=== PATIENT | female | born 1955 | race Two or more races ===

== ENCOUNTER 2016-03-30 08:05 | Emergency (ER) | payer OTHER ==
[2016-03-30 08:11] VITALS: BP 152/98; PULSE 92; TEMP 97.8; BMI 25.4
[2016-03-30] MEDS ORDERED: KETOROLAC TROMETHAMINE 60 MG/2 ML VIAL IM ONE (08:57)
--- NOTE | 2016-03-30 08:58 | PDOC ---
History of Present Illness - General Chief Complaint: Injury Stated Complaint: FALL/ LT SHOULDER PAIN Time Seen by Provider: 03/30/16 08:33 History Source: Patient Exam Limitations: No Limitations - History of Present Illness Initial Comments: 03/30/16 09:06 MY Chief Complaint: Fell left shoulder and upper arm pain History of present illness: Patient is a 60-year-old female with a history of hypertension and colon cancer who finished radiation therapy in the [facility] 33 sessions 01/14/2016. Patient reports that today she was walking in the hallway of her building and slipped and fell on the floor hitting her left shoulder and upper arm. Patient denies any head injury. Patient denies any neck pain. Patient denies any radiation of pain down left arm. Patient is unable to lift her left arm fully due to pain. Patient reports the pain currently is a 9 out of 10 aching and throbbing in nature. Patient has not taken anything for pain as yet. Occurred: reports: just prior to arrival Severity: reports: severe (left shoulder ) Past History - Past Medical History Allergies/Adverse Reactions: Allergies Allergy/AdvReac Type Severity Reaction Status Date / Time No Known Allergies Allergy Verified 03/30/16 08:54 Home Medications: Ambulatory Orders Oxycodone HCl/Acetaminophen [Percocet 5-325 mg Tablet] 1 tab PO Q6H PRN #12 tablet MDD 4 03/30/16 Cancer: Yes (COLON) GI Disorders: Yes (GASTRITIS) HTN: Yes - Psycho/Social/Smoking Cessation Hx Anxiety: No Suicidal Ideation: No Smoking History: Never smoked Hx Alcohol Use: No Drug/Substance Use Hx: No Substance Use Type: None Review of Systems - Review of Systems Able to Perform ROS?: Yes Constitutional: No: Symptoms Reported HEENTM: No: Symptoms Reported Respiratory: No: Symptoms reported Cardiac (ROS): No: Symptoms Reported ABD/GI: No: Symptoms Reported : No: Symptoms Reported Musculoskeletal: Yes: Joint Pain (left shoulder, left humerous ), Other (left thigh pain intermittent for few years ). No: Back Pain Integumentary: No: Symptoms Reported Neurological: No: Symptoms reported *Physical Exam - Vital Signs Last Vital Signs Temp Pulse Resp BP Pulse Ox 97.8 F 92 H 20 152/98 99 03/30/16 08:06 03/30/16 08:06 03/30/16 08:06 03/30/16 08:06 03/30/16 08:06 - Physical Exam General Appearance: Yes: Appropriately Dressed Neck: negative: Tender, Decreased range of motion, Lymphadenopathy (L), Rigidity , Tender lateral, Tender midline, Thyromegaly Respiratory/Chest: positive: Lungs Clear, Normal Breath Sounds. negative: Chest Tender, Respiratory Distress Cardiovascular: positive: Regular Rhythm, Regular Rate, S1, S2 Vascular Pulses: Doralis-Pedis (L): 4+ Comments:: 03/30/16 09:14 radial pulse 4+ left Gastrointestinal/Abdominal: positive: Normal Bowel Sounds, Soft. negative: Tender, Organomegaly, Increased Bowel Sounds, Distended, Guarding, Rebound, Tenderness, Hepatomegaly, Spleenomegaly Musculoskeletal: positive: Normal Inspection. negative: CVA Tenderness, CVA Tenderness (R), CVA Tenderness (L), Decreased Range of Motion, Vertebral Tenderness Extremity: positive: Normal Capillary Refill, Normal Inspection, Tender (left shoulder, proximal humerous ), Other. negative: Normal Range of Motion (left shoulder decreased ROM all directions) Integumentary: positive: Normal Color Neurologic: positive: Alert, Normal Response, Motor Strength 5/5 (left upper shoulder decreased rom, ), Respond to painful stimul (left arm/shoulder/left leg ), Other (negative SLR b/l ). negative: Numbness, Sensory Deficit (left arm ) Deep Tendon Reflexes: Knee (L): 3+, Knee (R): 3+ Procedures - Consent Consent obtained: From Patient - Splinting Pre-Proc Neuro Vasc Exam: normal Progress: 03/30/16 09:40 left shoulder immobilizer applied Medical Decision Making - Medical Decision Making 03/30/16 09:08 Patient is a 60-year-old female with a history of hypertension and colon cancer who finished radiation therapy in the [facility] 33 sessions 2015. Patient reports that today she was walking in the hallway of her building and slipped and fell on the floor hitting her left shoulder and upper arm. Patient denies any head injury. Patient denies any neck pain. Patient denies any radiation of pain down left arm. Patient is unable to lift her left arm fully due to pain. Patient reports the pain currently is a 9 out of 10 aching and throbbing in nature. Patient has not taken anything for pain as yet. Fall r/o shoulder/ humerous fracture 03/30/16 09:17 PLAN: toradol 60 mg IM now xray left shoulder xray left humerous fracture of proximal humerus with partial impaction Immobilizer applied to left 03/30/16 09:39 called ortho for consult, pt to be put into shoulder immoblilizer left sided follow up in ortho clinic at [facility] or [facility] ortho clinic percocet 5mg/325 mg 1 tab every 6 hours as needed for severe pain #12 tabs given 03/30/16 19:54 03/30/16 19:55 03/30/16 19:56 03/30/16 19:57 *DC/Admit/Observation/Transfer Diagnosis at time of Disposition: Humeral head fracture Qualifiers: Encounter type: initial encounter Fracture type: closed Laterality: left Qualified Code(s): S42.292A - Other displaced fracture of upper end of left humerus, initial encounter for closed fracture Diagnosis at time of Disposition: (Ruled Out): Fracture of humerus - Discharge Dispostion Disposition: HOME Condition at time of disposition: Stable - Prescriptions Prescriptions: Oxycodone HCl/Acetaminophen [Percocet 5-325 mg Tablet] 1 tab PO Q6H PRN #12 tablet MDD 4 PRN Reason: Severe Pain - Patient Instructions Additional Instructions: kEEP Shoulder immobilizer on may take off to shower APPLY ICE TO LEFT SHOULDER UPPER ARM EVERY 2 HOURS FOR 10 MINUTES Sleep sitting up partially 45 vapor pillow under her left shoulder area upper arm Follow-up with orthopedist at [facility] at [phone] asked orthopedic clinic PATIENT voiced understanding of discharge instructions and all questions were answered
[2016-03-30] MEDS ORDERED: KETOROLAC TROMETHAMINE 60 MG/2 ML VIAL ONE (09:00)
== END 2016-03-30 10:38 | disposition home or self-care (01) ==
LOC: JERFT 08:05
PROC: 3E0233Z Introduction of Anti-inflammatory into Muscle, Percutaneous Approach (ICD-10-PCS; principal; 2016-03-30)
PROC: 2W39X1Z Immobilization of Left Upper Extremity using Splint (ICD-10-PCS; 2016-03-30)
DX: S42.292A Other displaced fracture of upper end of left humerus, initial encounter for closed fracture (principal); W01.0XXA Fall on same level from slipping, tripping and stumbling without subsequent striking against object, initial encounter; Y93.89 Activity, other specified; Y92.038 Other place in apartment as the place of occurrence of the external cause
CPT/HCPCS: 73030-TC-LT; 73060-TC-LT; 99281-25

== ENCOUNTER 2020-08-16 14:02 | Observation (INO) | payer OTHER ==
[2020-08-16 15:57] LABS: BASO % 0.8 % (0-2.0); EOS % 4.7 % (0-4.5); HEMATOCRIT 36.6 % (32.4-45.2); HEMOGLOBIN 12.3 GM/dL (10.7-15.3); LYMPH % 34.4 % (8-40); MCH 30.5 pg (25.7-33.7); MCHC 33.6 g/dl (32.0-36.0); MEAN CELL VOLUME 90.9 fl (80-96); MEAN PLT VOLUME 9.8 fl (7.5-11.1); MONO % 9.5 % (3.8-10.2); NEUT % 50.6 % (42.8-82.8); PLATELET COUNT 218 K/MM3 (134-434); RBC 4.02 M/mm3 (3.60-5.2); WHITE BLOOD COUNT 4.2 K/mm3 (4.0-10.0)
[2020-08-16 16:06] LABS: PROTHROMBIN TIME (PATIENT) 12.3 SEC (9.7-13.0)
[2020-08-16 16:09] LABS: ACTIVATED PTT 31.5 SECONDS (25.2-36.5)
[2020-08-16 16:17] LABS: CHLORIDE 106 mmol/L (98-107); SODIUM 141 mmol/L (136-145)
[2020-08-16 16:19] LABS: CALCIUM 9.4 mg/dL (8.5-10.1)
[2020-08-16 16:20] LABS: ALBUMIN 3.8 g/dl (3.4-5.0); ANION GAP 8 MMOL/L (8-16); BLOOD UREA NITROGEN 13.9 mg/dL (7-18); CO2 27 mmol/L (21-32); GLUCOSE,RANDOM 95 mg/dL (74-106)
[2020-08-16 16:23] LABS: CREATININE 0.8 mg/dL (0.55-1.3); SGOT/AST 17 U/L (15-37); SGPT/ALT 18 U/L (13-61)
[2020-08-16 16:24] LABS: BILIRUBIN,TOTAL 0.3 mg/dL (0.2-1); TOT PROT 7.2 g/dl (6.4-8.2)
[2020-08-16 16:26] LABS: ALK PHOS 84 U/L (45-117)
[2020-08-16 16:28] LABS: N-TERMINAL BNP 84.6 pg/ml (5-125)
[2020-08-16] MEDS ORDERED: ATORVASTATIN CA 20 MG TABLET (FP) PO SCH (18:00)
[2020-08-16 20:49] LABS: N-TERMINAL BNP 75.1 pg/ml (5-125)
[2020-08-16] MEDS: ENOXAPARIN NA (PORCINE) 40 MG/0.4 ML DISP.SYRIN SQ SCH (22:37)
[2020-08-16] MEDS: ATORVASTATIN CA 20 MG TABLET (FP) PO SCH (22:38)
[2020-08-16] MEDS: PANTOPRAZOLE 40 MG TABLET PO SCH (22:39)
[2020-08-16] MEDS: LOSARTAN POTASSIUM 50 MG TABLET PO SCH (22:39)
[2020-08-16] MEDS: CARVEDILOL 6.25 MG TABLET (FP) PO SCH (22:40)
[2020-08-16 23:14] VITALS: BMI 26.6
[2020-08-17 06:59] LABS: BASO % 0.4 % (0-2.0); EOS % 4.5 % (0-4.5); HEMATOCRIT 36.3 % (32.4-45.2); HEMOGLOBIN 12.4 GM/dL (10.7-15.3); LYMPH % 40.5 % (8-40); MCH 30.9 pg (25.7-33.7); MEAN CELL VOLUME 90.7 fl (80-96); MEAN PLT VOLUME 9.9 fl (7.5-11.1); MONO % 10.7 % (3.8-10.2); NEUT % 43.9 % (42.8-82.8); PLATELET COUNT 220 K/MM3 (134-434); RDW 13.2 % (11.6-15.6); WHITE BLOOD COUNT 3.4 K/mm3 (4.0-10.0)
[2020-08-17 07:13] LABS: CHLORIDE 108 mmol/L (98-107); SODIUM 141 mmol/L (136-145)
[2020-08-17 07:20] LABS: ALBUMIN 3.6 g/dl (3.4-5.0); CALCIUM 9.1 mg/dL (8.5-10.1)
[2020-08-17 07:21] LABS: ANION GAP 7 MMOL/L (8-16); BLOOD UREA NITROGEN 15.8 mg/dL (7-18); CO2 26 mmol/L (21-32); GLUCOSE,RANDOM 94 mg/dL (74-106); MAGNESIUM 2.2 mg/dL (1.8-2.4)
[2020-08-17 07:23] LABS: BILIRUBIN,TOTAL 0.4 mg/dL (0.2-1); SGOT/AST 15 U/L (15-37); SGPT/ALT 17 U/L (13-61)
[2020-08-17 07:24] LABS: ALK PHOS 84 U/L (45-117); CHOLESTEROL 182 mg/dL (50-200); CREATININE 0.8 mg/dL (0.55-1.3); HDL CHOLESTEROL 51 mg/dL (40-60); LDL CHOLESTEROL (ONLY SJRH) 99 mg/dL (5-100); PHOSPHOROUS 4.3 mg/dL (2.5-4.9); TRIGLYCERIDES 133 mg/dL (0-150)
[2020-08-17] MEDS: PANTOPRAZOLE 40 MG TABLET PO SCH (09:31)
[2020-08-17] MEDS: ENOXAPARIN NA (PORCINE) 40 MG/0.4 ML DISP.SYRIN SQ SCH (09:31)
[2020-08-17] MEDS: LOSARTAN POTASSIUM 50 MG TABLET PO SCH (09:31)
[2020-08-17] MEDS: CARVEDILOL 6.25 MG TABLET (FP) PO SCH ×2 (09:31→21:31)
[2020-08-17] MEDS: ASPIRIN 81 MG CHEWABLE TABLETS PO SCH (11:20)
[2020-08-17] MEDS: ATORVASTATIN CA 20 MG TABLET (FP) PO SCH (21:31)
[2020-08-18 07:08] LABS: BASO % 0.4 % (0-2.0); EOS % 4.1 % (0-4.5); HEMATOCRIT 38.9 % (32.4-45.2); HEMOGLOBIN 12.8 GM/dL (10.7-15.3); LYMPH % 39.6 % (8-40); MCH 29.9 pg (25.7-33.7); MEAN CELL VOLUME 90.8 fl (80-96); MEAN PLT VOLUME 9.7 fl (7.5-11.1); MONO % 9.7 % (3.8-10.2); NEUT % 46.2 % (42.8-82.8); PLATELET COUNT 225 K/MM3 (134-434); RBC 4.28 M/mm3 (3.60-5.2); RDW 13.3 % (11.6-15.6); WHITE BLOOD COUNT 3.7 K/mm3 (4.0-10.0)
[2020-08-18 07:27] LABS: BLOOD UREA NITROGEN 19.8 mg/dL (7-18)
[2020-08-18 07:30] LABS: CREATININE 0.8 mg/dL (0.55-1.3)
[2020-08-18] MEDS ORDERED: REGADENOSON 0.4 MG/5 ML PRE-FILLED SYRINGE IVPUSH ONE ×2 (09:45→10:45)
[2020-08-18] MEDS: ASPIRIN 81 MG CHEWABLE TABLETS PO SCH (12:39)
[2020-08-18] MEDS: LOSARTAN POTASSIUM 50 MG TABLET PO SCH (12:40)
[2020-08-18] MEDS: CARVEDILOL 6.25 MG TABLET (FP) PO SCH (12:40)
[2020-08-18] MEDS: PANTOPRAZOLE 40 MG TABLET PO SCH (12:41)
[2020-08-18] MEDS: ENOXAPARIN NA (PORCINE) 40 MG/0.4 ML DISP.SYRIN SQ SCH (12:41)
[2020-08-18 14:41] VITALS: BP 138/82; PULSE 68; TEMP 98.2
== END 2020-08-18 16:07 | disposition home or self-care (01) ==
LOC: JER 14:02 → JERBED 15:59 → INTOOBSV 15:59 → J4W 21:26
PROVIDERS: ADMIT Internal Medicine; ATTEND Internal Medicine
PROC: 3E023GC Introduction of Other Therapeutic Substance into Muscle, Percutaneous Approach (ICD-10-PCS; principal; 2020-08-16)
DX: R07.9 Chest pain, unspecified (principal); R42 Dizziness and giddiness; I10 Essential (primary) hypertension; E78.5 Hyperlipidemia, unspecified; Z85.038 Personal history of other malignant neoplasm of large intestine
CPT/HCPCS: 36415; 71046-TC-FY; 78452-TC; 80048; 80053; 80061; 83036; 83721; 83735; 83880; 84100; 84443; 84484; 85025; 85610; 85730; 93005; 93010; 93017; 93306-TC; 96372; 99285-25; A9502; C9803; G0378; J2785; U0003; U0005